=== PATIENT | female | born 1990 | race Caucasian/White ===

== ENCOUNTER → 2017-08-20 | Outpatient (CLI) | payer OTHER ==
[2017-08-20 12:25] LABS: ADD MAN DIFF? NO
[2017-08-20 12:30] LABS: BASO # 0.1 x10^3/uL (0.0-0.2); BASO % 1 % (0-3); EOS # 0.2 x10^3/uL (0.0-0.7); EOS % 2 % (0-3); HEMATOCRIT 42.8 % (36.0-47.0); HEMOGLOBIN 14.1 g/dL (12.0-15.5); LYMPH # 1.5 x10^3/uL (1.0-4.8); LYMPH % 12 % (24-48); MEAN CORPUSCULAR HEMOGLOBIN 30 pg (25-35); MEAN CORPUSCULAR HGB CONC 33 g/dL (31-37); MEAN CORPUSCULAR VOLUME 92 fL (79-100); MONO # 0.9 x10^3/uL (0.0-1.1); MONO % 7 % (0-9); NEUT # 10.6 x10^3uL (1.8-7.7); NEUT % 79 % (31-73); PLATELET COUNT 327 x10^3/uL (140-400); RED BLOOD COUNT 4.67 x10^6/uL (3.50-5.40); RED CELL DISTRIBUTION WIDTH 14.9 % (11.5-14.5); WHITE BLOOD COUNT 13.3 x10^3/uL (4.0-11.0)
[2017-08-20 12:49] LABS: ALK PHOS 53 U/L (46-116); ALT (SGPT) 15 U/L (14-59); ANION GAP 9 (6-14); AST (SGOT) 13 U/L (15-37); BLOOD UREA NITROGEN 25 mg/dL (7-20); BUN/CREATININE RATIO 28 (6-20); CALCIUM 9.7 mg/dL (8.5-10.1); CARBON DIOXIDE 28 mmol/L (21-32); CHLORIDE 100 mmol/L (98-107); CREATININE 0.9 mg/dL (0.6-1.0); GFR 74.6; GLUCOSE 89 mg/dL (70-99); POTASSIUM 4.6 mmol/L (3.5-5.1); SODIUM 137 mmol/L (136-145); TOTAL BILIRUBIN 0.3 mg/dL (0.2-1.0); TOTAL PROTEIN 8.1 g/dL (6.4-8.2)
[2017-08-21 04:22] LABS: HEP B SURFACE AG Negative (Negative)
[2017-08-21 05:18] LABS: HIV ANTIBODY Non Reactive (Non Reactive)
[2017-08-21 07:26] LABS: RPR Non Reactive (Non Reactive)
[2017-08-22 18:09] LABS: RUBELLA IGG ANTIBODY 2.17 index (Immune >0.99)
== END | disposition home or self-care (01) ==
LOC: US 12:07
DX: O21.0 Mild hyperemesis gravidarum (principal); Z3A.19 19 weeks gestation of pregnancy
CPT/HCPCS: 36415; 80053; 85025; 86593; 86703; 86762; 86850; 86900; 86901; 87340

== ENCOUNTER → 2017-10-22 | Outpatient (CLI) | payer OTHER | END | disposition home or self-care (01) | LOC: US 13:39 | DX: O26.842 Uterine size-date discrepancy, second trimester (principal); Z3A.21 21 weeks gestation of pregnancy | CPT/HCPCS: 76805 ==

== ENCOUNTER → 2021-06-16 | Outpatient (CLI) | payer BC, OTHER ==
[2015-08-16 09:52] VITALS: BP 96/62
[~2021-06-16] MED LIST: CYAN-25 PO; GABA-585 PO; LAMO25TA9 PO; MELA3TAB4 PO; METO-269 PO; ONDA4TAB10 SL; OXYC1TAB15 PO; POLY17PO29 PO; TOPI25TA52 PO; TOPI25TA7 PO; ZOLP10TA PO
--- NOTE | 2021-06-16 08:23 | RAD ---
EXAM: Pelvic sonogram. HISTORY: Excessive menstruation. Postcoital bleeding. TECHNIQUE: Transabdominal and transvaginal sonographic imaging of the pelvis was performed. COMPARISON: None. FINDINGS: The uterus it is anteverted and measures 9.0 x 5.9 x 4.2 cm. The endometrial stripe measure s 6.1 mm. The ovaries are normal in size and demonstrate normal blood flow. There is a dominant left ovarian follicle/follicular cyst measuring 1.9 cm. There is no pelvic free fluid. IMPRESSION: 1. Physiologic dominant left ovarian follicle/follicular cyst measuring 1.9 cm. 2. Normal premenopausal endometrial stripe thickness. Electronically signed by: Fani Grace MD (06/16/2021 8:21 AM) [id number]
== END ==
LOC: US 07:04
PROVIDERS: ATTEND Obstetrics & Gynecology
DX: N83.02 Follicular cyst of left ovary (principal); N85.4 Malposition of uterus; N92.0 Excessive and frequent menstruation with regular cycle; N93.0 Postcoital and contact bleeding; N93.9 Abnormal uterine and vaginal bleeding, unspecified
CPT/HCPCS: 76830; 76856